=== PATIENT | female | born 1955 | race Asian ===

== ENCOUNTER 2021-07-22 16:44 | Emergency (ER) | payer SELFPAY ==
[~2021-07-22] VITALS: Ht 152.4 cm; Wt 57.6 kg
[2021-07-22 16:49] VITALS: BP 121/68
--- NOTE | 2021-07-22 16:57 | NUR ---
PT SEEN AND EXAMINED BY MISBAH KRISHNA.
--- NOTE | 2021-07-22 17:20 | NUR ---
COVID SWAB, INFLUENZA COLLECTED AND SENT TO LAB.
[2021-07-22] MEDS ORDERED: IBUPROFEN 600 MG TABLET ONE (17:30)
[2021-07-22] MEDS ORDERED: IBUPROFEN 600 MG TABLET PO ONE (18:00)
--- NOTE | 2021-07-22 18:35 | NUR ---
Patient discharged to home in stable condition. Written and verbal after care instructions given. Patient verbalizes understanding of instruction.
== END 2021-07-22 18:36 | disposition home or self-care (01) ==
LOC: ER 16:48
DX: U07.1 COVID-19 (principal); E78.5 Hyperlipidemia, unspecified; I10 Essential (primary) hypertension; F41.9 Anxiety disorder, unspecified
CPT/HCPCS: 71045; 87426; 87804; 99284; C9803; U0003